=== PATIENT | female | born 1940 | race Caucasian/White ===

== ENCOUNTER 2017-05-27 16:23 | Emergency (ER) | payer MEDICARE ==
[2017-05-27] MEDS ORDERED: ACETAMINOPHEN 325 MG TAB PO ONE (16:35)
--- NOTE | 2017-05-27 16:42 | Emergency Department Record ---
History of Present Illness - General Chief complaint: Pain Stated complaint: RT HIP PAIN Time Seen by Provider: 05/27/17 16:31 Source: Patient Mode of Arrival: EMS Limitations: No limitations - History of Present Illness Initial comments: The patient is here due to R hip pain. She stumbled on an object on the floor 3 days ago and her R hip was mildly painful. She was walking OK though and yesterday shoveled snow and both hips hurt. Today only her R hip hurt with weight bearing. She denies any new trauma, fall, fever, chills, or any back or knee pain. She also denies any leg numbness or weakness. MD Complaint: Extremity pain, Joint pain Onset/Timin -: Days(s) Location: Right Severity scale (1-10): 6 Quality: Aching Consistency: Constant Improves with: Nothing Worsens with: Nothing - Related Data Home Medications Medication Instructions Recorded Confirmed Last Taken Acetaminophen [Tylenol 325Mg] 325 mg PO Q4H PRN 05/27/17 05/27/17 1 Day Ago ~05/26/17 Aspirin [Aspirin EC] 81 mg PO DAILY 05/27/17 05/27/17 1 Day Ago ~05/26/17 Fenofibrate Nanocrystallized 160 mg PO DAILY 05/27/17 05/27/17 1 Day Ago [Triglide] ~05/26/17 Fish Oil/Dha/Epa [Fish Oil 1,200 1 each PO BID 05/27/17 05/27/17 1 Day Ago mg Fish Oil] ~05/26/17 Furosemide [Lasix] 20 mg PO ASDIR 05/27/17 05/27/17 1 Day Ago ~05/26/17 Levothyroxine Sodium 50 mcg PO DAILY 05/27/17 05/27/17 1 Day Ago ~05/26/17 Liraglutide [Victoza 2-Maksim] 1.2 mg SQ DAILY 05/27/17 05/27/17 1 Day Ago ~05/26/17 Lisinopril 5 mg PO DAILY 05/27/17 05/27/17 1 Day Ago ~05/26/17 Metformin HCl 1,000 mg PO BID 05/27/17 05/27/17 1 Day Ago ~05/26/17 Metoprolol Succinate [Toprol Xl] 25 mg PO DAILY 05/27/17 05/27/17 1 Day Ago ~05/26/17 Multivitamin [Multi-Vitamin Daily] 1 each PO DAILY 05/27/17 05/27/17 1 Day Ago ~05/26/17 Pravastatin Sodium [Pravachol] 80 mg PO DAILY 05/27/17 05/27/17 1 Day Ago ~05/26/17 Ropinirole HCl [Requip] 1 mg PO DAILY 05/27/17 05/27/17 1 Day Ago ~05/26/17 Vitamin E 400 unit PO DAILY 05/27/17 05/27/17 1 Day Ago ~05/26/17 Allergies Allergy/AdvReac Type Severity Reaction Status Date / Time Sulfa (Sulfonamide Allergy RASH Verified 05/27/17 16:36 Antibiotics) Travel Screening - Travel/Exposure Within Last 30 Days Have you traveled within the last 30 days?: No - Travel/Exposure Within Last Year Have you traveled outside the [place] in the last year?: No - Additonal Travel Details Have you been exposed to anyone with a communicable illness?: No - Travel Symptoms Symptom Screening: None Review of Systems Constitutional: Denies: Chills, Fever Eyes: Denies: Eye discharge ENT: Denies: Congestion Respiratory: Denies: Cough, Dyspnea Past Medical History - SOCIAL HISTORY Smoking Status: Former smoker Alcohol Use: None, Occasional Drug Use: None - RESPIRATORY Hx Respiratory Disorders: No - CARDIOVASCULAR Hx Abnormal EKG: Yes Hx CHF: Yes Hx Hypertension: Yes Comment:: valve dx - NEURO Hx Neuro Disorders: No - GI Hx Reflux: Yes Comment:: inflammatory colitis - Comment:: frequent urination - ENDOCRINE Hx Diabetes: Yes Hx Thyroid Disease: Yes - MUSCULOSKELETAL Hx Musculoskeletal Disorders: No - PSYCH Hx Psych Problems: No - HEMATOLOGY/ONCOLOGY Hx Anemia: No Hx Blood Disorders: No Hx Bruising: No Hx Cancer: No Family Medical History Any Significant Family History?: Yes Physical Exam - General General Appearance: Alert, Oriented x3, Cooperative, No acute distress - Head Head exam: Atraumatic, Normocephalic, Normal inspection - Eye Eye exam: Normal appearance, PERRL - Neck Neck exam: Normal inspection, Full ROM. negative: Tenderness - Respiratory Respiratory exam: Normal lung sounds bilaterally. negative: Respiratory distress - Cardiovascular Cardiovascular Exam: Regular rate, Normal rhythm, Normal heart sounds, Systolic murmur (2/6 chronic.). negative: Tachycardia - GI/Abdominal GI/Abdominal exam: Soft, Normal bowel sounds. negative: Tenderness - Extremities Extremities exam: Normal inspection, Full ROM. negative: Calf tenderness, Joint swelling, Pedal edema, Tenderness (There is no R hip tenderness to palpation.) - Back Back exam: Reports: Normal inspection, Full ROM. Denies: Muscle spasm, Paraspinal tenderness, Rash noted, Tenderness, Vertebral tenderness - Neurological Neurological exam: Alert, Normal gait. negative: Abnormal gait, Altered, Motor sensory deficit Course Vital Signs 05/27/17 16:25 Temperature 98.5 F Pulse Rate 89 Respiratory 16 Rate Blood Pressure 133/71 Pulse Ox 97 - Reevaluation(s) Reevaluation #1: The patient is doing a lot better at this time. She denies any pain or discomfort. She is up walking with a walker with no problem, pain, or limping. She is to use Tylenol for pain at home and continue to use the walker for 3 days. I also did discuss the neg xrays with the patient and daughter. 05/27/17 17:28 05/27/17 17:32 Medical Decision Making - Data Complexity MDM Data: X-Ray Ordered and/or Reviewed (R Hip: Neg.) Disposition Disposition: Discharge Clinical Impression: Strain of right hip Disposition: Home, Self-Care Condition: (2) Stable Instructions: Hip Sprain (ED) Additional Instructions: Please take Tylenol for pain and use your home walker as needed for 3 days. Please see your PCP for recheck if not better in 3 days. Return to the ER for any worsening pain, trouble or inability to walk or back pain. Forms: Patient Portal Access Time of Disposition: 17:27 Quality - Quality Measures Quality Measures: N/A - Blood Pressure Screening View Details: Yes Does Patient Have Any of the Following: No, Active Dx of HTN Blood Pressure Classification: Pre-Hypertensive BP Reading Systolic Measurement: 133 Diastolic Measurement: 71 Screening for High Blood Pressure: Patient Exclusion, Hx of HTN [[id number]]
--- NOTE | 2017-05-28 09:55 | RADIOLOGY REPORT ---
EXAM: RIGHT HIP WITH PELVIS HISTORY: TRIPPED ON SUNDAY. RIGHT HIP PAIN SINCE. TECHNIQUE: An AP view of the pelvis and AP and lateral views of the right hip were obtained. Comparison: None. Encounter: Initial. FINDINGS: The bones and joints appear intact. There is no visible acute fracture or dislocation. There are minor arthritic changes within the hips and sacroiliac joints bilaterally. Degenerative changes are partially visualized within the lower lumbar spine. IMPRESSION: 1. NO ACUTE HIP OR PELVIC PATHOLOGY. 2. MILD ARTHRITIC CHANGES. JOB NUMBER: [id number] [facility]
== END 2017-05-27 17:35 | disposition home or self-care (01) ==
LOC: ER 16:23
DX: S76.011A Strain of muscle, fascia and tendon of right hip, initial encounter (principal); W22.8XXA Striking against or struck by other objects, initial encounter
CPT/HCPCS: 99283